=== PATIENT | male | born 1950 | race American Indian/Alaskan Native ===

== ENCOUNTER 2020-04-24 13:13 | Emergency (ER) | payer MEDICARE, OTHER ==
[2020-04-24] MEDS ORDERED: Bacitracin Oint 1 GM U/D Packet TOP ONE (14:15)
--- NOTE | 2020-04-24 14:17 | EDM.PDOC ---
ED HPI GENERAL MEDICAL PROBLEM - General Chief Complaint: Skin Complaint Stated Complaint: R ARM TEARS Time Seen by Provider: 04/24/20 14:12 Source of Information: Reports: Patient, RN Notes Reviewed History Limitations: Reports: No Limitations - History of Present Illness INITIAL COMMENTS - FREE TEXT/NARRATIVE: 70-year-old gentleman presents emergency department today with complaint of skin tears he injured himself last night presented to the emergency department today for a dressing change - Related Data Allergies Allergy/AdvReac Type Severity Reaction Status Date / Time No Known Allergies Allergy Verified 04/24/20 13:45 Past Medical History Cardiovascular History: Reports: Hypertension Endocrine/Metabolic History: Reports: Diabetes, Type II - Infectious Disease History Infectious Disease History: Reports: Chicken Pox, Measles, Mumps - Past Surgical History GI Surgical History: Reports: Small Bowel Social & Family History - Tobacco Use Tobacco Use Status *Q: Unknown Ever Used Tobacco - Caffeine Use Caffeine Use: Reports: None - Recreational Drug Use Recreational Drug Use: No ED ROS GENERAL - Review of Systems Review Of Systems: See Below Skin: Reports: Wound ED EXAM, SKIN/RASH Exam: See Below Text/Narrative:: Examination of the right arm he does have several small skin tears dorsal surface right arm they are superficial unfortunately the top layer skin is now shriveled up and dried away there is nothing to repair wound bed is clean dry and intact Exam Limited By: No Limitations General Appearance: Alert, WD/WN, No Apparent Distress Course - Vital Signs Last Recorded V/S: Last Vital Signs Temp 97.6 F 04/24/20 13:51 Pulse 60 04/24/20 13:51 Resp 18 04/24/20 13:51 BP 181/80 H 04/24/20 13:51 Pulse Ox 94 L 04/24/20 13:51 - Orders/Labs/Meds Orders: Active Orders 24 hr Category Date Time Status Bacitracin [Bacitracin Oint 1 GM] Med 04/24/20 14:15 Once 2 dose TOP ONETIME ONE Departure - Departure Time of Disposition: 14:17 Disposition: Home, Self-Care 01 Condition: Fair Clinical Impression: Skin tear - Discharge Information Instructions: Skin Tear, [id number] Referrals: Lucina Carbajal I, [employer] [Primary Care Provider] - Additional Instructions: Please followup with your primary care provider in 3-5 days if not better, please call return to the emergency department with worsening of symptoms. Sepsis Event Note (ED) - Evaluation Sepsis Screening Result: No Definite Risk - Focused Exam Vital Signs: Vital Signs Temp Pulse Resp BP Pulse Ox 04/24/20 13:51 97.6 F 60 18 181/80 H 94 L 04/24/20 13:41 97.6 F 60 18 181/80 H 94 L - My Orders Last 24 Hours: My Active Orders 04/24/20 14:15 Bacitracin [Bacitracin Oint 1 GM] 2 dose TOP ONETIME ONE - Assessment/Plan Last 24 Hours: My Active Orders 04/24/20 14:15 Bacitracin [Bacitracin Oint 1 GM] 2 dose TOP ONETIME ONE Plan: Assessment Acuity = acute Site and laterality = skin tear right arm Etiology = trauma Manifestations = none Location of injury = Home Lab values = none Plan Dressing with bacitracin and Tegaderm follow-up primary care 3 to 5 days for reevaluation This note was dictated using [employer] voice recognition software please call with any questions on syntax or grammar.
== END 2020-04-24 14:38 | disposition home or self-care (01) ==
LOC: JP.ED 13:13
DX: S41.111A Laceration without foreign body of right upper arm, initial encounter (principal); I10 Essential (primary) hypertension; E11.9 Type 2 diabetes mellitus without complications; W19.XXXA Unspecified fall, initial encounter
CPT/HCPCS: 99282